=== PATIENT | female | born 1955 | race Caucasian/White ===

== ENCOUNTER 2018-12-13 16:43 | Outpatient (CLI) | payer OTHER ==
[~2018-12-13 16:43] MED LIST: HYDR50TA3 PO
[2018-12-13 17:31] LABS: CHOLESTEROL 177 mg/dL (<200); HDL CHOLESTEROL 40 mg/dL (>55); LDL CHOLESTEROL 119 mg/dL (<100); TRIGLYCERIDES 96 mg/dL (30-150)
== END 2018-12-13 19:47 | disposition home or self-care (01) ==
LOC: SLB 16:43
PROVIDERS: ATTEND Psychiatry & Neurology Psychiatry
DX: Z00.00 Encounter for general adult medical examination without abnormal findings (principal)
CPT/HCPCS: 36415; 80061; 83036; 87081

== ENCOUNTER 2018-12-27 14:31 | Outpatient (CLI) | payer OTHER ==
[2018-12-27 16:56] LABS: FREE T4 (FREE THYROXINE) 1.7 ng/dl (0.8-1.5); THYROID STIMULATING HORMONE 3.82 uIu/mL (0.36-3.74)
== END 2018-12-27 20:14 | disposition home or self-care (01) ==
LOC: SLB 14:31
PROVIDERS: ATTEND Psychiatry & Neurology Psychiatry
DX: Z00.00 Encounter for general adult medical examination without abnormal findings (principal)
CPT/HCPCS: 36415; 84439; 84443-TC